=== PATIENT | female | born 1965 | race Caucasian/White ===

== ENCOUNTER → 2017-06-12 11:05 | Outpatient (CLI) | payer BC ==
[~2017-06-12 11:05] MED LIST: ABILIFY10 MG PO; CALCIUM 600 +1 EAC3 PO; HYDROCODONE-APA1 TAB PO; LEVOTHYROXINE75 MCG PO; LEXAPRO20 MG PO; MULTIPLE VITAMI1 TA1 PO; PREMARIN0.625 MG PO; VITAMIN D2000 UNIT PO
[2017-07-11 12:52] VITALS: BMI 35.2
== END | disposition home or self-care (01) ==
LOC: D.US 08:30
DX: R10.11 Right upper quadrant pain (principal)

== ENCOUNTER 2017-07-11 05:10 | Day surgery (SDC) | payer BC ==
[2017-07-10 15:53] LABS: BASOPHILS 0.6 % (0-2); EOSINOPHILS 2.8 % (0-7); HEMATOCRIT 37.5 % (36.0-48.0); HEMOGLOBIN 12.5 g/dL (12-16); IMMATURE GRANULOCYTES 0.2 % (0-5); LYMPHOCYTES 43.8 % (15-50); MCH 30.5 pg (26.0-34.0); MCHC 33.3 g/dL (31.0-37.0); MCV 91.5 fL (80.0-100.0); MEAN PLATELET VOLUME 9.4 fL (7.4-10.4); MONOCYTES 7.2 % (2-11); NEUTROPHILS 45.4 % (40-80); PLATELET COUNT 231 10x3/uL (130-400); WBC 5.3 10x3/uL (4.8-10.8)
[2017-07-10 16:07] LABS: CALC OSMOLALITY 278 mosm/kg (275-300); CALCIUM 8.9 mg/dL (8.5-10.1); CARBON DIOXIDE 26.7 mmol/L (21.0-32.0); CHLORIDE - SERUM 103 mmol/L (98-107); CREATININE - SERUM 0.7 mg/dL (0.6-1.3); GLUCOSE 95 mg/dL (74-106); POTASSIUM - SERUM 3.9 mmol/L (3.5-5.1); SODIUM 139 mmol/L (136-145); UREA NITROGEN 16 mg/dL (7-18); eGFR NON AFRICAN AMERICAN > 90 mL/min (90-120)
[~2017-07-11] VITALS: Ht 167.6 cm; Wt 98.9 kg
--- NOTE | ~2017-07-11 | OP ---
PATIENT NAME: GRACE HOLCOMB MEDICAL RECORD: [id number] :61 LOCATION:D.OPS ADMISSION DATE: SURGEON: JUSTICE NICOLAS MD DATE OF OPERATION: 07/11/2017 DATE OF OPERATION: 07/11/2017 PREOPERATIVE DIAGNOSES: 1. Gallstones. 2. Hypothyroidism. 3. Heart murmur. POSTOPERATIVE DIAGNOSES: 1. Gallstones. 2. Hypothyroidism. 3. Heart murmur. PROCEDURE: Laparoscopic cholecystectomy. SURGEON: Justice Nicolas MD REPORT OF PROCEDURE: The patient's abdomen was prepped and draped in sterile fashion. A cutdown was made on the superior aspect of the umbilicus, 0 Vicryls were placed in the fascia bilaterally and the fascia was incised with 15-blade. I then bluntly entered the peritoneal cavity and placed a 12-mm Mundo port. Under direct visualization, a 5 mm trocar was placed in the epigastrium and 2 more 5-mm trocars were placed in the right subcostal region. The gallbladder was grasped and elevated. The cystic artery and duct were dissected free and these were clipped proximally and distally and ligated in standard fashion. The gallbladder was taken off the liver bed using electrocautery and placed in the right upper quadrant. Any bleeding from the liver bed was treated with electrocautery. We then irrigated out the right upper quadrant and assured there were no signs of any further bleeding or bile leakage. The ports and insufflation were then removed and the gallbladder was taken out through the umbilicus. The umbilical fascia was closed with interrupted 0 Vicryls times 3. The wounds were irrigated out with normal saline and infused with 10 mL of 0.25% Marcaine with epinephrine. The skin incisions were all closed with subcutaneous 5-0 Monocryl and dressed appropriately. COMPLICATIONS: None. CONDITION: Stable. ANESTHESIA: General endotracheal and local. BLOOD LOSS: Minimal. TRANSINT:[id number] Voice Confirmation ID: [id number] DOCUMENT ID: [id number] OPERATIVE REPORT [id number] LORENAFrankoGRACE JUSTICE NICOLAS MD at 0801 CC: TALHA RIVERS MD [id number] DICTATION DATE: 07/11/17 1533 [employer] WORKER: 07/11/17 1619 [facility] 07/11/17 [facility] [address] [place] [address]
[~2017-07-11 05:10] MED LIST changes: -HYDROCODONE-APA1 TAB PO; -MULTIPLE VITAMI1 TA1 PO
[2017-07-11] MEDS ORDERED: MULTIPLE VITAMI1 TA1 PO (12:44)
[2017-07-11 12:52] VITALS: Ht 167.6 cm; Wt 98.9 kg
[2017-07-11] MEDS ORDERED: HYDROCODONE-APA1 TAB PO (15:24)
== END 2017-07-11 17:55 | disposition home or self-care (01) ==
LOC: D.OPS 05:10
PROVIDERS: Surgery
DX: K80.80 Other cholelithiasis without obstruction (principal); E03.9 Hypothyroidism, unspecified; R01.1 Cardiac murmur, unspecified; Z01.812 Encounter for preprocedural laboratory examination